=== PATIENT | male | born 1945 | race Caucasian/White ===

== ENCOUNTER → 2021-05-09 | Day surgery (SDC) | payer MEDICARE ==
[~2021-05-09] VITALS: Ht 175.3 cm; Wt 114.0 kg
[~2021-05-09] MED LIST: ASPI-630 PO; CRESTOR5 MG PO; FENO54TA PO; IV RINGERS,LACTATED 1000ML 1,000 ML IV SCH; LIDOCAINE 2% PF 5 ML VIAL. ONE; LISI1TAB37 PO; PROP120C44 PO; PROPOFOL 10 MG/ML (20ML) VIAL. IV ONE; SUMA100T4 PO; SUMA50TA3 PO; TAMS0.4C97 PO
[2021-05-09 09:41] VITALS: BP 93/54
== END | disposition home or self-care (01) ==
LOC: ENDOS 08:19
PROVIDERS: ATTEND Internal Medicine Gastroenterology
DX: Z12.11 Encounter for screening for malignant neoplasm of colon (principal); K64.0 First degree hemorrhoids; K57.30 Diverticulosis of large intestine without perforation or abscess without bleeding; K63.89 Other specified diseases of intestine; I10 Essential (primary) hypertension; E78.00 Pure hypercholesterolemia, unspecified; Z86.010 Personal history of colon polyps; Z83.71 Family history of colonic polyps; Z79.82 Long term (current) use of aspirin; Z79.899 Other long term (current) drug therapy; Z98.890 Other specified postprocedural states
CPT/HCPCS: G0105; J2704; 45378